=== PATIENT | male | born 1990 | race African-American/Black ===

== ENCOUNTER 2022-03-19 18:50 | Emergency (ER) | payer OTHER ==
[~2022-03-19] VITALS: Ht 175.3 cm; Wt 81.8 kg
[2022-03-19 18:58] VITALS: TEMP 98.2
[2022-03-19 19:31] LABS: BASO # 0.1 K/mm3 (0.0-0.2); BASO % 0.8 % (0.0-2.0); EOS # 0.2 K/mm3 (0.0-0.7); EOS % 2.5 % (0.0-4.0); GRAN # 2.4 K/mm3 (1.4-6.5); GRAN % 36.4 % (42.2-75.2); HEMATOCRIT 49.2 % (42.0-52.0); HEMOGLOBIN 16.8 g/dl (13.5-18.0); LYMPH # 3.5 K/mm3 (1.2-3.4); LYMPH % 54.1 % (20.0-51.0); MEAN CELL VOLUME 84 fl (80.0-100.0); MEAN CORPUSCULAR HEMOGLOBIN 29 pg (27-31); MEAN CORPUSCULAR HGB CONC 34 g/dl (33.0-37.0); MEAN PLATELET VOLUME 11.9 fl (7.4-10.4); MONO # 0.4 K/mm3 (0.1-0.6); PLATELET COUNT 223 K/mm3 (130-400); RED BLOOD COUNT 5.83 M/mm3 (4.20-5.60); REDCELL DISTRIBUTION WIDTH-CV 13.1 % (11.5-14.5)
[2022-03-19 19:46] LABS: ALBUMIN 4.6 gm/dL (3.5-5.0); BILIRUBIN,TOTAL 0.5 mg/dL (0.2-1.2); CALCIUM 9.9 mg/dL (8.4-10.2); CREATININE, serum 1.61 mg/dL (0.72-1.25); POTASSIUM 4.1 mmol/L (3.5-4.5); TOTAL PROTEIN 8.1 gm/dL (6.2-8.1)
[2022-03-19] MEDS ORDERED: NORCO 325 MG-51 TAB PO (20:41)
[2022-03-19 21:00] VITALS: BP 124/73; PULSE 82
== END 2022-03-19 21:00 | disposition home or self-care (01) ==
LOC: COL.ER 18:50
PROVIDERS: Personal Emergency Response Attendant
DX: R51.9 Headache, unspecified (principal); R79.89 Other specified abnormal findings of blood chemistry